=== PATIENT | male | born 1985 | race African-American/Black ===

== ENCOUNTER 2024-08-23 12:46 | Emergency (ER) | payer SELFPAY ==
[2024-08-23 13:09] VITALS: BP 143/95; PULSE 69; RESP 18; TEMP 97.5; BMI 23.7
[2024-08-23] MEDS ORDERED: HYDROmorphone HCL CARPU-JECT 2 MG/1 ML DISP.SYRIN ONE (13:48)
[2024-08-23] MEDS: HYDROmorphone HCl 2 MG/ML VIAL IVPUSH ONE ×2 (14:18→14:24)
== END 2024-08-23 20:52 | disposition home or self-care (01) ==
LOC: JER 12:46
PROC: 3E033NZ Introduction of Analgesics, Hypnotics, Sedatives into Peripheral Vein, Percutaneous Approach (ICD-10-PCS; principal; 2024-08-23)
DX: S83.005A Unspecified dislocation of left patella, initial encounter (principal); W10.1XXA Fall (on)(from) sidewalk curb, initial encounter
CPT/HCPCS: 73562-TC-LT-FY; 99284-25